=== PATIENT | male | born 1960 | race Caucasian/White ===

== ENCOUNTER 2018-03-15 19:13 | Emergency (ER) | payer SELFPAY ==
[~2018-03-15] VITALS: Ht 185.4 cm; Wt 113.6 kg
[2018-03-15 19:15] VITALS: BP 136/84; TEMP 97.8
[2018-03-15] MEDS ORDERED: DOXYCYCLINE 10100 MG PO (19:41)
[2018-03-15 20:05] VITALS: PULSE 65
== END 2018-03-15 20:10 | disposition home or self-care (01) ==
LOC: COL.ER 19:13
DX: L02.91 Cutaneous abscess, unspecified (principal); L03.112 Cellulitis of left axilla

== ENCOUNTER → 2019-02-14 | Outpatient (CLI) | payer BC ==
[~2019-02-14] MED LIST: DOXYCYCLINE 10100 MG PO
== END ==
LOC: COL.RAD 13:11
DX: M25.551 Pain in right hip (principal); M25.561 Pain in right knee

== ENCOUNTER 2019-08-19 09:19 | Outpatient (RCR) | payer BC | END 2019-08-30 15:12 | disposition home or self-care (01) | LOC: WSC 09:19 | DX: Z01.812 Encounter for preprocedural laboratory examination (principal) ==

== ENCOUNTER → 2019-08-23 | Outpatient (CLI) | payer BC | LOC: COL.PUL 08:00 | DX: J45.909 Unspecified asthma, uncomplicated (principal); F17.210 Nicotine dependence, cigarettes, uncomplicated ==

== ENCOUNTER → 2019-08-29 | Outpatient (CLI) | payer BC | LOC: COL.PUL 08-21 11:30 | DX: Z01.810 Encounter for preprocedural cardiovascular examination (principal); I25.2 Old myocardial infarction; I10 Essential (primary) hypertension; J45.909 Unspecified asthma, uncomplicated ==

== ENCOUNTER 2020-12-25 08:23 | Emergency (ER) | payer BC ==
[~2020-12-25] VITALS: Ht 185.4 cm; Wt 127.3 kg
[2020-12-25 08:40] VITALS: BP 134/89; TEMP 98.9
[2020-12-25] MEDS ORDERED: AMOXICILLIN 50500 MG PO (09:01)
[2020-12-25] MEDS ORDERED: PERIDEX (CHLOR480 ML MM (09:01)
[2020-12-25 09:14] VITALS: PULSE 88
== END 2020-12-25 09:14 | disposition home or self-care (01) ==
LOC: COL.ER 08:23
DX: K12.2 Cellulitis and abscess of mouth (principal); K12.30 Oral mucositis (ulcerative), unspecified; J45.909 Unspecified asthma, uncomplicated
CPT/HCPCS: J0696

== ENCOUNTER 2021-05-17 17:26 | Emergency (ER) | payer BC ==
[~2021-05-17 17:26] MED LIST changes: +AMOXICILLIN 50500 MG PO; +PERIDEX (CHLOR480 ML MM
[2021-05-18] MEDS ORDERED: ELIQUIS 5MG PO ×2 (14:44→14:48)
[2021-05-18] MEDS ORDERED: CEPHALEXIN500 M1 PO (14:48)
[2021-05-18] MEDS ORDERED: BACTRIM DS 8001 TAB PO (14:48)
== END 2021-05-17 18:11 | disposition left against medical advice (07) ==
LOC: COL.ER 17:26
DX: R69 Illness, unspecified (principal)

== ENCOUNTER 2021-05-18 10:08 | Emergency (ER) | payer BC ==
[~2021-05-18] VITALS: Ht 185.4 cm; Wt 106.8 kg
[2021-05-18 11:54] LABS: COLLECTION METHOD CLEAN CATCH
[2021-05-18 11:58] LABS: BASO % 0.2 % (0.0-2.0); EOS # 0.1 K/mm3 (0.0-0.7); EOS % 0.9 % (0.0-4.0); GRAN # 5.4 K/mm3 (1.4-6.5); HEMATOCRIT 45.9 % (42.0-52.0); HEMOGLOBIN 14.5 g/dl (13.5-18.0); LYMPH # 1.7 K/mm3 (1.2-3.4); LYMPH % 21.3 % (20.0-51.0); MEAN CELL VOLUME 89 fl (80.0-100.0); MEAN CORPUSCULAR HEMOGLOBIN 28 pg (27-31); MEAN CORPUSCULAR HGB CONC 32 g/dl (33.0-37.0); MEAN PLATELET VOLUME 9.7 fl (7.4-10.4); MONO # 0.8 K/mm3 (0.1-0.6); MONO % 10.4 % (1.7-9.3); PLATELET COUNT 192 K/mm3 (130-400); RED BLOOD COUNT 5.18 M/mm3 (4.20-5.60); REDCELL DISTRIBUTION WIDTH-CV 15.3 % (11.5-14.5)
[2021-05-18 12:14] LABS: ALBUMIN 3.2 gm/dL (3.5-5.0); BILIRUBIN,TOTAL 0.5 mg/dL (0.2-1.2); C-REACTIVE PROTEIN 13.78 mg/dL (0.00-0.50); CALCIUM 9.5 mg/dL (8.4-10.2); CREATININE, serum 0.79 mg/dL (0.72-1.25); POTASSIUM 4.1 mmol/L (3.5-4.5); TOTAL PROTEIN 8.2 gm/dL (6.2-8.1)
[2021-05-18 12:14] LABS: MUCOUS Present (NOT PRESENT); PH 5 (5-8); SQUAMOUS EPITHELIAL None Seen /hpf (0-10); URINE APPEARANCE Hazy (CLEAR/HAZY); URINE BACTERIA Rare /hpf (NONE SEEN); URINE BILIRUBIN Negative (NEGATIVE); URINE BLOOD 1+ (NEGATIVE); URINE COLOR Amber (YELLOW); URINE GLUCOSE 1+ (NEGATIVE); URINE KETONE Trace (NEGATIVE); URINE LEUKOCYTE ESTERASE Negative (NEGATIVE); URINE NITRATE Negative (NEGATIVE); URINE PROTEIN(semi-quant) 1+ (NEGATIVE); URINE UROBILINOGEN Negative (NEGATIVE)
[2021-05-18 12:30] LABS: ERYTHROCYTE SEDIMENTATION RATE 46 mm/hr (0-30)
[2021-05-18] MEDS ORDERED: ELIQUIS 5MG PO ×2 (14:44→14:48)
[2021-05-18] MEDS ORDERED: CEPHALEXIN500 M1 PO (14:48)
[2021-05-18] MEDS ORDERED: BACTRIM DS 8001 TAB PO (14:48)
[2021-05-18 15:30] VITALS: BP 151/99; PULSE 77; TEMP 98.2
== END 2021-05-18 15:45 | disposition home or self-care (01) ==
LOC: COL.ER 10:08
PROVIDERS: Nurse Practitioner Family
DX: I82.402 Acute embolism and thrombosis of unspecified deep veins of left lower extremity (principal); L03.116 Cellulitis of left lower limb; R03.0 Elevated blood-pressure reading, without diagnosis of hypertension; B35.2 Tinea manuum

== ENCOUNTER 2021-05-27 13:18 | Emergency (ER) | payer BC ==
[~2021-05-27] VITALS: Ht 185.4 cm; Wt 109.1 kg
[~2021-05-27 13:18] MED LIST changes: +BACTRIM DS 8001 TAB PO; +CEPHALEXIN500 M1 PO; +ELIQUIS 5MG PO
[2021-05-27 14:03] VITALS: TEMP 98.3
[2021-05-27] MEDS ORDERED: MICRO-K 10 EXT10 MEQ PO (15:46)
[2021-05-27] MEDS ORDERED: LASIX 40MG TABL40 MG PO (15:46)
[2021-05-27] MEDS ORDERED: ULTRAM 50MG TAB50 MG PO (15:46)
[2021-05-27 16:33] VITALS: BP 136/93; PULSE 100
== END 2021-05-27 16:33 | disposition home or self-care (01) ==
LOC: COL.ER 13:18
DX: I87.2 Venous insufficiency (chronic) (peripheral) (principal); I89.0 Lymphedema, not elsewhere classified

== ENCOUNTER → 2021-11-17 | Outpatient (CLI) | payer BC ==
[~2021-11-17] MED LIST changes: +LASIX 40MG TABL40 MG PO; +MICRO-K 10 EXT10 MEQ PO; +ULTRAM 50MG TAB50 MG PO
== END ==
LOC: COL.CARD 11:55
DX: R00.2 Palpitations (principal)

== ENCOUNTER → 2021-11-23 | Outpatient (CLI) | payer BC | LOC: COL.VAS 13:39 | DX: R06.09 Other forms of dyspnea (principal) ==